=== PATIENT | female | born 1995 | race Caucasian/White ===

== ENCOUNTER → 2017-03-10 | Outpatient (CLI) | payer BC ==
[~2017-03-10] MED LIST: BUSP1TAB46 PO; NORE1TAB7 PO; RIVA1TAB7 PO; TRAM-10 PO
--- NOTE | 2017-03-10 14:45 | MAMMOGRAPHY REPORT ---
ULTRASOUND OF BOTH BREASTS: 03/10/2017 CLINICAL HISTORY: 21-year-old woman reports a heavy feeling along the inferior right breast that is positional and fluctuating. She also reports her provider felt a ridge in the inferior right breast on recent physical exam. No skin erythema or nipple discharge. No family history of breast cancer . COMPARISON: No prior exams were available for comparison. FINDINGS: Real-time high-resolution ultrasound was performed along the inferior and lateral right b reast in the area of abnormal sensation pointed out by the patient. Incidental note is made of a mo rphologically normal lymph node in the 9:00 right breast, 6 cm from the nipple. Throughout the esther nirmala of the inferior and lateral right breast, normal fibroglandular tissue is seen without a suspi cious solid or cystic mass. IMPRESSION: ACR BI-RADS CATEGORY 1: NEGATIVE There is no sonographic evidence of malignancy or other suspicious abnormality to explain the interm ittent positional abnormal sensation along the inferior right breast, or the ridge identified by the patient's provider. Therefore, clinical follow-up is recommended, as biopsy of a clinically suspic ious mass should not be precluded by negative imaging. These results and recommendations were discussed with the patient at the time of the exam. Valeria Cho M.D. ay/:03/10/2017 14:32:51 [employer] Teacher: Savanna DECKER)(Hieu), [facility] letter sent: Normal 1/2 BI-RADS Code: ACR BI-RADS Category 1: Negative
== END | disposition home or self-care (01) ==
LOC: C.MAMM 13:46
PROVIDERS: ATTEND Physician Assistant
DX: N64.4 Mastodynia (principal); N64.59 Other signs and symptoms in breast

== ENCOUNTER → 2017-08-05 | Outpatient (CLI) | payer BC ==
[~2017-08-05] MED LIST changes: -RIVA1TAB7 PO; -TRAM-10 PO
--- NOTE | 2017-08-05 11:36 | DIAGNOSTIC IMAGING REPORT ---
R VENOUS DOPP LOWER EXT UNILAT CLINICAL HISTORY: 22 years-old Female presenting with PAIN. TECHNIQUE: Real-time grayscale and color and spectral Doppler ultrasound imaging of the veins of the right lower extremity was performed. Compression and augmentation were also utilized. COMPARISON: None. FINDINGS: Right: Common femoral vein: Patent. Femoral vein: Patent. Greater saphenous vein: Patent. Popliteal vein: Patent. Calf veins: Filling defect within the right peroneal vein consistent with thrombus. Remaining calf veins patent. Other: None. IMPRESSION: Findings consistent with deep venous thrombosis in the right peroneal vein. No additional DVT in the more superior veins. The report will be called/faxed according to standard departmental protocol. Electronically signed by: Anton Marshall M.D. 08/05/2017 11:34 AM Dictated Date/Time: 08/05/2017 11:33 AM
== END | disposition home or self-care (01) ==
LOC: C.ULTR 10:39
PROVIDERS: ATTEND Physician Assistant Medical
DX: M79.604 Pain in right leg (principal)

== ENCOUNTER 2017-08-10 14:43 | Emergency (ER) | payer BC ==
[~2017-08-10] VITALS: Ht 177.8 cm; Wt 117.0 kg
[2017-08-10 14:55] VITALS: TEMP 36.8; Ht 177.8 cm; Wt 117.0 kg
[2017-08-10] MEDS ORDERED: SODIUM CHLORIDE 0.9% 1000ML 1,000 ML IV STA (15:17)
--- NOTE | 2017-08-10 15:29 | EMERGENCY ROOM VISIT NOTE ---
History First contact with patient: 15:10 Chief Complaint: CHEST PAIN Stated Complaint: BLOOD CLOT IN R LEG, CHEST ALEX Nursing Triage Summary: Patient ambulatory to triage with the use of a cane. Patient states "I was diagnosed with a DVT in my RLE on Friday. I was started on Xarelto on Friday. They told me to watch out for chest pains. Last night, I noticed having severe heartburn in the right side of my chest, under my breast. I took something for pain but I don't know what it's called. I woke up lightheaded and with a headache today. I took some Tylenol but no additional pain meds. Today, three times, I have had stabbing and sharp pain in the center of my chest three times. I have been lightheaded and dizzy occassionally." History of Present Illness The patient is a 22 year old female who presents to the Emergency Room with complaints of lightheadedness and intermittent right-sided chest pain that started last night. Patient states that the chest pain felt like heartburn that radiated to the right side of her chest and under her right breast. She has also had some intermittent periods of lightheadedness associated with sharp pains in her chest since this morning. She denies any shortness of breath or increased work of breathing. She reports that she was diagnosed with a right lower extremity DVT 5 days ago, she was started on Xarelto which she has been taking as prescribed. She states that they told her if she got chest pain that she should come to the ER, this is what she is most concerned about. She denies any of these symptoms currently. She does report a history of GERD, and states she is not currently taking any medication for this but she was supposed to be taking omeprazole. She denies any headaches, vision changes, neck pain, syncope , abdominal pain, nausea or vomiting, urinary symptoms, rash. Review of Systems A complete 10 point review of systems was reviewed with the patient with pertinent positives and negatives as per history of present illness. All else were negative. Past Medical/Surgical History DVT Social History Smoking Status: Never Smoker Alcohol Use: none Drug Use: none Current/Historical Medications Scheduled Rivaroxaban (Xarelto Starter Pack 15 & 20 mg), 15 MG PO BID Scheduled PRN Tramadol (Ultram), 50 MG PO Q6 PRN for Pain Allergies No known allergies. Physical Exam Vital Signs Date Time Temp Pulse Resp B/P (MAP) Pulse Ox O2 Delivery O2 Flow Rate FiO2 08/10/17 17:44 72 16 114/76 98 08/10/17 16:35 74 18 99/68 100 Room Air 08/10/17 16:04 100 Room Air 08/10/17 16:04 100 Room Air 08/10/17 14:55 97 Room Air 08/10/17 14:55 36.8 80 20 142/95 98 Room Air Physical Exam CONSTITUTIONAL: No acute distress. Mildly dehydrated. Well appearing and well nourished. Alert and oriented X 4 with normal affect. HEENT: Normocephalic, atraumatic. Pupils equal, round and reactive to light, EOMI. TMs normal. Pharynx normal. Tacky mucous membranes. NECK: Supple, full active range of motion without discomfort. RESPIRATORY: Clear to auscultation bilaterally with no wheezing, crackles, rhonchi or stridor. Equal expansion bilaterally. CARDIOVASCULAR: Regular rate and rhythm with no murmurs, rubs or gallops. Normal peripheral perfusion. No edema. GASTROINTESTINAL: Soft, nontender, nondistended. Bowel sounds present in all quadrants. MUSCULOSKELETAL: Full range of motion of all joints without discomfort. Right lower extremity mildly tender to palpation. INTEGUMENTARY: No rash or other significant dermatologic conditions noted. NEUROLOGIC: Cranial nerves II-XII grossly intact. No focal neurologic deficits noted. Medical Decision & Procedures ER Provider Diagnostic Interpretation: CT ANGIOGRAPHY OF THE CHEST, PULMONARY EMBOLUS PROTOCOL CLINICAL HISTORY: Chest pain and shortness of breath. COMPARISON STUDY: No previous studies for comparison. TECHNIQUE: Following IV administration of 93 mL of Optiray-320, helical axial images of the chest were obtained utilizing the pulmonary embolus protocol. Maximal intensity projections and sagittal and coronal reformats were viewed on an independent 3D workstation. IV contrast was administered without complication. A dose lowering technique was utilized adhering to the principles of ALARA. CT DOSE: 527.84 mGy.cm FINDINGS: No pulmonary emboli are identified. There is no evidence of thoracic aortic dissection. The size of the heart is normal. There is no pericardial effusion. Central airways are patent. There is no consolidation to suggest pneumonia. No pneumothorax or pleural effusion is present. No axillary, mediastinal or hilar lymphadenopathy is present. Bony thorax and upper abdomen are unremarkable. IMPRESSION: 1. No pulmonary emboli identified. 2. No acute intrathoracic findings. Laboratory Results 08/10/17 15:10 Red Blood Count 5.21, Mean Corpuscular Volume 84.3, Mean Corpuscular Hemoglobin 28.2, Mean Corpuscular Hemoglobin Concent 33.5, Mean Platelet Volume 9.8, Neutrophils (%) (Auto) 54.4, Lymphocytes (%) (Auto) 35.1, Monocytes (%) (Auto) 8.6, Eosinophils (%) (Auto) 1.1, Basophils (%) (Auto) 0.6, Neutrophils # (Auto) 4.48, Lymphocytes # (Auto) 2.89, Monocytes # (Auto) 0.71, Eosinophils # (Auto) 0.09, Basophils # (Auto) 0.05 08/10/17 15:10 Test 08/10/17 15:10 08/10/17 15:37 08/10/17 16:01 White Blood Count 8.24 K/uL (4.8-10.8) Red Blood Count 5.21 M/uL (4.2-5.4) Hemoglobin 14.7 g/dL (12.0-16.0) Hematocrit 43.9 % (37-47) Mean Corpuscular Volume 84.3 fL (80-100) Mean Corpuscular Hemoglobin 28.2 pg (25-34) Mean Corpuscular Hemoglobin Concent 33.5 g/dl (32-36) Platelet Count 363 K/uL (130-400) Mean Platelet Volume 9.8 fL (7.4-10.4) Neutrophils (%) (Auto) 54.4 % Lymphocytes (%) (Auto) 35.1 % Monocytes (%) (Auto) 8.6 % Eosinophils (%) (Auto) 1.1 % Basophils (%) (Auto) 0.6 % Neutrophils # (Auto) 4.48 K/uL (1.4-6.5) Lymphocytes # (Auto) 2.89 K/uL (1.2-3.4) Monocytes # (Auto) 0.71 K/uL (0.11-0.59) Eosinophils # (Auto) 0.09 K/uL (0-0.5) Basophils # (Auto) 0.05 K/uL (0-0.2) RDW Standard Deviation 39.0 fL (36.4-46.3) RDW Coefficient of Variation 12.8 % (11.5-14.5) Immature Granulocyte % (Auto) 0.2 % Immature Granulocyte # (Auto) 0.02 K/uL (0.00-0.02) Est Creatinine Clear Calc Drug Dose 148.6 ml/min Estimated GFR () 117.8 Estimated GFR (Non- 101.7 BUN/Creatinine Ratio 16.8 (10-20) Calcium Level 9.1 mg/dl (8.5-10.1) Total Bilirubin 0.4 mg/dl (0.2-1) Aspartate Amino Transf (AST/SGOT) 15 U/L (15-37) Alanine Aminotransferase (ALT/SGPT) 17 U/L (12-78) Alkaline Phosphatase 78 U/L (45-117) Total Protein 8.4 gm/dl (6.4-8.2) Albumin 3.6 gm/dl (3.4-5.0) Globulin 4.8 gm/dl (2.5-4.0) Albumin/Globulin Ratio 0.8 (0.9-2) Bedside Hemoglobin 14.6 g/dl (12.0-16.0) Bedside Hematocrit 43 % (37-47) Bedside Sodium 139 mEq/L (135-144) Bedside Potassium 3.4 mEq/L (3.3-5.0) Bedside Chloride 100 mEq/L (101-112) Bedside Total CO2 26 mEq/l (24-31) Anion Gap 18.0 mmol/L (16-25) Bedside Blood Urea Nitrogen 15 mg/dl (7-18) Bedside Creatinine 0.8 mg/dl (0.6-1.3) Bedside Glucose (other) 96 mg/dl (70-99) Bedside Ionized Calcium (Monalisa) 1.21 mmol/l (1.12-1.32) Urine Color ORANGE Urine Appearance CLEAR (CLEAR) Urine pH 5.5 (4.5-7.5) Urine Specific [place] 1.016 (1.000-1.030) Urine Protein NEG (NEG) Urine Glucose (UA) NEG (NEG) Urine Ketones NEG (NEG) Urine Occult Blood 3+ (NEG) Urine Nitrite NEG (NEG) Urine Bilirubin NEG (NEG) Urine Urobilinogen NEG (NEG) Urine Leukocyte Esterase SMALL (NEG) Urine WBC (Auto) 5-10 /hpf (0-5) Urine RBC (Auto) >30 /hpf (0-4) Urine Hyaline Casts (Auto) 1-5 /lpf (0-5) Urine Epithelial Cells (Auto) >30 /lpf (0-5) Urine Bacteria (Auto) NEG (NEG) Medications Administered Medications (Trade) Dose Ordered Sig/Amanda Route Start Time Stop Time Status Last Admin Dose Admin Sodium Chloride 1,000 ml @ 999 mls/hr Q1H1M STAT IV 08/10/17 15:17 08/10/17 16:17 DC 08/10/17 15:17 999 MLS/HR ECG Indication: chest pain Rate (beats per minute): 79 Rhythm: normal sinus Findings: no acute ischemic change, no ectopy Comparison ECG Date: no prior available Medical Decision CC: Patient presenting with complaint of lightheadedness and chest pain Interpretation of Labs: No leukocytosis, no anemia, no significant abnormalities , normal renal function, normal liver enzymes. UA with leuk esterase and hematuria, patient states she is on her period. Differential Diagnosis: Includes, but not limited to PE, dysrhythmia, dehydration, electrolyte abnormality, anemia, musculoskeletal chest pain, anxiety, GERD, gastritis, among others. Medication Reconciliation: I attest that I have personally reviewed the patient' s current medication list. Vital signs review: I reviewed the patient's vital signs and interpret them as follows: T: Afebrile; BP: Hypertensive; HR: Within normal limits; RR: Within normal limits; Pulse Ox: Within normal limits on room air. Summary: Patient was evaluated at bedside, history of physical exam performed. Patient alert and in no acute distress, but does appear to be anxious, sitting in the stretcher. Lungs are clear, no exam findings for increased work of breathing. Heart sounds are normal, she is not tachycardic. Given her recent diagnosis of DVT complaints of chest pain and dizziness, will assess for PE. Patient does appear to be mildly dehydrated, she does admit she is not been drinking well lately. EKG reviewed at bedside, shows normal sinus with no acute ischemic changes. Orders were placed at bedside for labs, UA, IV fluids for hydration, CT chest to evaluate for PE. Patient discussed with Dr. Cornejo, who agrees with my assessment and plan. Labs reviewed as above, unremarkable. No UTI. CT imaging is negative for PE or any other acute abnormalities. Patient reassessed multiple times throughout ED stay, she continues to feel well and has not had any return of her symptoms while in the ED. She was updated on all results and plan for discharge. She was instructed to follow closely with her PCP, and to return if her symptoms worsen, she verbalized understanding. Patient was discharged home in stable condition and ambulatory. Medication Reconcilliation Current Medication List: was personally reviewed by me Blood Pressure Screening Patient's blood pressure: Elevated blood pressure Blood pressure disposition: Elevated BP felt to be situational Impression Primary Impression: Light-headed feeling Additional Impression: Chest pain Departure Information Dispostion Home / Self-Care Condition GOOD Referrals Eligio Lancaster M.D. (PCP) Patient Instructions ED Dizziness [facility], ED GERD, [facility], [facility] Additional Instructions You have been treated in the Emergency Department your lightheadedness and chest pain. Laboratory results and imaging studies have ruled out any emergent causes for your abdominal pain which would warrant admission or surgery. Specifically, your CT scan was negative for a pulmonary embolism (blood clot in the lungs). If your chest pain/indigestion symptoms return, try treating this with over-the- counter medicine for indigestion such as Tums, Maalox, Zantac or Pepcid. Drink plenty of fluids and stay well hydrated. As with any trip to the Emergency Department, you should follow-up with your Primary Care Provider in the next few days. Please return to the emergency department for any worsening symptoms, including worsening chest pain, severe dizziness or passing out, shortness of breath, fever/chills/feeling ill, or any other concerns. Problem Qualifiers Additional Impression: Chest pain Chest pain type: unspecified Qualified Codes: R07.9 - Chest pain, unspecified
[2017-08-10] MEDS ORDERED: OPTIRAY 320 IV PRN (15:30)
[2017-08-10 15:47] LABS: BUN/CREATININE RATIO 16.8 (10-20); CALCIUM 9.1 mg/dl (8.5-10.1); CREATININE 0.81 mg/dl (0.60-1.20); POTASSIUM 3.4 mmol/L (3.5-5.1)
[2017-08-10 15:47] LABS: ISTAT CREATININE 0.8 mg/dl (0.6-1.3); ISTAT HEMOGLOBIN 14.6 g/dl (12.0-16.0); ISTAT IONIZED CALCIUM 1.21 mmol/l (1.12-1.32)
[2017-08-10 15:51] LABS: ALB/GLOB RATIO 0.8 (0.9-2)
[2017-08-10 16:04] VITALS: O2SAT 100
--- NOTE | 2017-08-10 16:04 | DIAGNOSTIC IMAGING REPORT ---
CT ANGIOGRAPHY OF THE CHEST, PULMONARY EMBOLUS PROTOCOL CLINICAL HISTORY: Chest pain and shortness of breath. COMPARISON STUDY: No previous studies for comparison. TECHNIQUE: Following IV administration of 93 mL of Optiray-320, helical axial images of the chest were obtained utilizing the pulmonary embolus protocol. Maximal intensity projections and sagittal and coronal reformats were viewed on an independent 3D workstation. IV contrast was administered without complication. A dose lowering technique was utilized adhering to the principles of ALARA. CT DOSE: 527.84 mGy.cm FINDINGS: No pulmonary emboli are identified. There is no evidence of thoracic aortic dissection. The size of the heart is normal. There is no pericardial effusion. Central airways are patent. There is no consolidation to suggest pneumonia. No pneumothorax or pleural effusion is present. No axillary, mediastinal or hilar lymphadenopathy is present. Bony thorax and upper abdomen are unremarkable. IMPRESSION: 1. No pulmonary emboli identified. 2. No acute intrathoracic findings. Electronically signed by: Mu Coats M.D. 08/10/2017 4:02 PM Dictated Date/Time: 08/10/2017 3:56 PM
[2017-08-10 16:16] LABS: MANUAL MICROSCOPIC REQUIRED? NO; REVIEW REQ? NO; URINE APPEARANCE CLEAR (CLEAR); URINE BILIRUBIN NEG (NEG); URINE COLOR ORANGE; URINE EPITHELIAL CELL AUTO >30 /lpf (0-5); URINE NITRITE NEG (NEG); URINE PH 5.5 (4.5-7.5); URINE SPECIFIC GRAVITY 1.016 (1.000-1.030); UROBILINOGEN NEG (NEG)
[2017-08-10 16:26] LABS: BASO % 0.6 %; BASO ABS # 0.05 K/uL (0-0.2); COMPLETE YES; EOS % 1.1 %; HEMATOCRIT 43.9 % (37-47); IG% 0.2 %; LYMPH % 35.1 %; LYMPH ABS # 2.89 K/uL (1.2-3.4); MEAN CELL VOLUME 84.3 fL (80-100); MEAN CORPUSCULAR HEMOGLOBIN 28.2 pg (25-34); MEAN CORPUSCULAR HGB CONC 33.5 g/dl (32-36); MEAN PLATELET VOLUME 9.8 fL (7.4-10.4); MONO % 8.6 %; NEUT % 54.4 %; PLATELET COUNT 363 K/uL (130-400); RED BLOOD COUNT 5.21 M/uL (4.2-5.4); WHITE BLOOD COUNT 8.24 K/uL (4.8-10.8)
[2017-08-10] MEDS ORDERED: RIVA1TAB7 PO (16:40)
[2017-08-10] MEDS ORDERED: TRAM-10 PO (16:40)
[2017-08-10 17:44] VITALS: BP 114/76; PULSE 72; O2SAT 98
== END 2017-08-10 17:45 | disposition home or self-care (01) ==
LOC: C.EDB 14:44 → C.EDC 17:45
DX: R07.9 Chest pain, unspecified (principal); R42 Dizziness and giddiness; K21.9 Gastro-esophageal reflux disease without esophagitis; Z86.718 Personal history of other venous thrombosis and embolism; Z79.899 Other long term (current) drug therapy

== ENCOUNTER → 2017-08-15 | Outpatient (CLI) | payer BC ==
[~2017-08-15] MED LIST changes: -BUSP1TAB46 PO; -NORE1TAB7 PO; +RIVA1TAB7 PO; +TRAM-10 PO
[2017-08-15 16:39] LABS: URINE APPEARANCE CLEAR (CLEAR); URINE BILIRUBIN NEG (NEG); URINE COLOR YELLOW; URINE EPITHELIAL CELL AUTO 20-30 /lpf (0-5); URINE NITRITE NEG (NEG); URINE SPECIFIC GRAVITY 1.011 (1.000-1.030); UROBILINOGEN NEG (NEG)
[2017-08-15 16:42] LABS: BLOOD UREA NITROGEN 12 mg/dl (7-18); BUN/CREATININE RATIO 18.9 (10-20); CALCIUM 9.2 mg/dl (8.5-10.1); CARBON DIOXIDE 28 mmol/L (21-32); CHLORIDE 104 mmol/L (98-107); CREATININE 0.66 mg/dl (0.60-1.20); GLUCOSE 87 mg/dl (70-99); SODIUM 137 mmol/L (136-145)
[2017-08-15 16:56] LABS: MANUAL MICROSCOPIC REQUIRED? NO; REVIEW REQ? NO
== END | disposition home or self-care (01) ==
LOC: C.LABBFT 12:07
PROVIDERS: ATTEND Physician Assistant Medical
DX: E87.6 Hypokalemia (principal)

== ENCOUNTER 2020-09-28 17:42 | Observation (INO) ==
[2020-09-28 19:00] LABS: Alanine Aminotransferase 71 U/L (12-78); Albumin Level 3.3 gm/dl (3.4-5.0); Aspartate Aminotransferase 91 U/L (15-37); BUN Creatinine Ratio 8.4 (10-20); Bilirubin Direct 0.3 mg/dl (0-0.2); Blood Urea Nitrogen 14 mg/dl (7-18); Calcium 9.7 mg/dl (8.5-10.1); Carbon Dioxide 22 mmol/L (21-32); Chloride 105 mmol/L (98-107); Est GFR (African American) 50.7; Est GFR (Non-African American) 43.7; Glucose 95 mg/dl (70-99); Magnesium 1.9 mg/dl (1.8-2.4); Potassium 3.3 mmol/L (3.5-5.1); Sodium 140 mmol/L (136-145)
[2020-09-28 19:03] LABS: Alkaline Phosphatase 179 U/L (45-117); Phosphorus 3.5 mg/dl (2.5-4.9); Total Protein 6.9 gm/dl (6.4-8.2)
--- NOTE | 2020-09-28 19:20 | XRay Report ---
XR chest 1V portable CLINICAL HISTORY: admission - leukocytosis COMPARISON STUDY: 09/24/2020 FINDINGS: The heart is borderline enlarged. There is a subpulmonic right pleural effusion with associ ated right basilar airspace opacities. The left lung remains clear.[ IMPRESSION: 1. Elevation of the right hemidiaphragmatic contour with lateral shouldering of the right hemidiaphra gmatic shadow. The findings are suggestive of a subpulmonic right pleural effusion. There are associa beth right basilar airspace opacities ACT 112: Negative or not required by law. Electronically signed by: Alo Lopes M.D. 09/28/2020 7:18 PM
[2020-09-28 19:39] LABS: Hematocrit (blood only) 32.4 % (37-47); Hemoglobin 11.2 g/dL (12.0-16.0); Mean Corpuscular Hemoglobin 26.7 pg (25-34); Mean Corpuscular Hgb Conc 34.6 g/dL (32-36); Mean Corpuscular Volume 77.1 fL (80-100); RDW Coefficient of Variation 14.7 % (11.5-14.5); RDW Standard Deviation 41.6 fL (36.4-46.3); White Blood Count 15.24 K/uL (4.8-10.8)
[2020-09-28 19:40] LABS: Mean Platelet Volume 10.3 fL (7.4-10.4); Nucleated RBC # (auto) 0.72 K/uL (0-0); Nucleated RBC % (auto) 4.7 %; Platelet Count 19 K/uL (130-400)
[2020-09-28 19:41] LABS: ALC (manual) 9.36 K/uL (1.2-3.4); Basophils # (manual) 0.14 K/uL (0-0.2); Basophils % (manual) 0.9 %; Eosinophils # (manual) 0.66 K/uL (0-0.5); Eosinophils % (manual) 4.3 %; Lymphocytes # (manual) 6.49 K/uL (1.2-3.4); Lymphocytes % (manual) 42.6 %; Metamyelocytes # (manual) 0.52 K/uL (0-0); Metamyelocytes % (manual) 3.4 %; Monocytes # (manual) 1.17 K/uL (0.11-0.59); Monocytes % (manual) 7.7 %; Myelocytes % (manual) 2.6 %; Neutrophils % (manual) 19.7 %; Platelet Estimate Decreased (Normal); RBC Morphology Unremarkable; Reactive Lymphocytes # (manual) 2.87 K/uL; Reactive Lymphocytes % (manual) 18.8 %
--- NOTE | 2020-09-28 19:59 | History & Physical Report ---
Date of Service September 28, 2020 Assessment & Plan (1) Shortness of breath: Selene Muhammad is a 25yo C female presenting with multiple complaints - SOB, sweats, night sweats. Laboratory findings concerning for thrombocytopenia (plt=19), microcytic anemia (Hgb=11.2, Hct=32.4, MCV=77.1), leukocytosis with lymphocytosis. Concerning for acute malignancy -Check Uric Acid, LDH, Peripheral smear -Ferritin, iron studies -FSH ordered -Heme/Onc consultation appreciated Present on Admission?: Yes (2) Axillary lymphadenopathy: Concern for acute malignancy -See plan as above -Patient will most likely need FNA Present on Admission?: Yes (3) Edema of lower extremity: Patient reports progressive bilateral LE edema over the last few days. 2+ non-pitting on exam -Check BNP -Elevate legs -Check UA, TSH Present on Admission?: Yes (4) Transaminitis: Elevated AST, AP. Diffuse abdominal tenderness. Organomegaly difficult to appreciate secondary to body habitus -Check CT Abdomen -Repeat LFTs in AM Present on Admission?: Yes (5) Thrombocytopenia: Platelets = 19. Patient reports nosebleeds at home. No spontaneous bleeding at present -Peripheral smear -Check Fibrinogen, Coags for possible DIC Present on Admission?: Yes (6) Lymphocytosis: As above. Concern for acute malignancy -Peripheral smear -Hematology consultation appreciated Present on Admission?: Yes (7) Gastritis: Chronic. Fairly well controlled. -Hold Pepcid for now due to thrombocytopenia Present on Admission?: Yes History of Present Illness Chief Complaint: jaw pain Primary Care Provider: Eligio Lancaster MD Selene Muhammad is a 25yo C female with history of DVT presenting at the request of her outpatient physician for workup of jaw pain, thrombocytopenia and leukocytosis. Patient seen in the ER on 09/06/20 with complaint of cough/congestion/fevers/body aches. WBC=11.8 platelets WNL at that time. CTA of the chest was done which was negative for PE. A nonspecific axillary LN was detected at that time - 4.5 cm. Patient was diagnosed with viral bronchitis, given Dexamethasone x 1 dose and discharged home with MDI. Patient returned to the ER on 09/17/20 with complaint of fever, SERVIN, CP, body aches, nausea. Also with severe SERVIN and nosebleeds. Patient's platelet count found to be 95 at that time - also with elevated lymphocytes and D.dimer as well as abnormal liver studies. Lyme and anaplasmosis negative. Patient had an unremarkable CT of the head and sinuses as well as a normal MRI/MRV of the brain. She returns to the ER today with complaint of ongoing body pains, JULIO/SOB, occ asional nosebleeds, chest tightness. She states she has drenching night sweats every night for the last 3.5 weeks. Some minimal unintentional weight loss. New bilateral LE edema with pain in her feet as well as severe pain in her jaw. Allergies Allergy/AdvReac Type Severity Reaction Status Date / Time No Known Allergies Allergy Verified 09/28/20 19:18 Home Medications Medication Instructions Recorded Confirmed Type acetaminophen [Acetaminophen Extra 1,000 mg PO Q6H PRN 09/06/20 09/28/20 History Strength] loratadine 10 mg PO DAILY PRN 09/06/20 09/28/20 History famotidine 20 mg PO BID #20 tab 09/17/20 09/28/20 Rx hydroxyzine HCl 25 mg PO Q6H PRN 09/28/20 09/28/20 History ondansetron 4 mg PO Q6H PRN 09/28/20 09/28/20 History promethazine 25 mg PO Q6H PRN 09/28/20 09/28/20 History Past Med/Surg History Medical History DVT (deep venous thrombosis) Angela Polanco virus infection Surgical History History of cholecystectomy History of tonsillectomy Family History Brother Asthma Grandmother (Paternal) Breast cancer Grandmother (Maternal) Diabetes Hypertension Grandfather (Maternal) Diverticulitis Mother Uterus cancer Grandfather (Paternal) Hypertension Denies family history of Ovarian cancer Prostate cancer Myocardial infarction Colorectal cancer Social History Smoking Status: Never smoker Second Hand Exposure: No; Do You Dip or Chew Tobacco: No; Hx Alcohol Use: No Hx Substance Use: No Preferred Language: Indonesian Communication Ability: Effective Visual Impairment: No Limitations Hearing Ability: Normal Band Bias Machine Operator Required: No Beliefs That Will Affect Care: None Current Living Situation: Family current occupational status: employed Other Information That Helps Us Care for You: No Feels Safe at Home: Yes Safety Concerns: Feels Safe At This Time Sunscreen Use: Yes Assistive Devices: None Review of Systems Review of Systems: All systems reviewed & are unremarkable except as noted in HPI & below +Sweats +Weight loss +SERVIN - dull, frontal +Ear pain - right +Sore throat +Chest tightness +SOB/JULIO +Abdominal pain +Diarrhea - q hourly, no blood/mucus +Nosebleeds +edema Physical Exam Physical Exam: General: patient anxious in appearance, NAD, ill in appearance, AA&O x 4 Skin: warm, dry, intact, no rashes or lesions HEENT: NC/AT, PERRL, EOMI, anicteric sclera, conjunctiva without injection, external ear normal to inspection and nontender, +cerumen present bilaterally, no otitis externa, nares patent, moist mucus membranes, dentition intact, no oropharyngeal lesions, neck supple, trachea midline, no LAD, no thyromegaly, no JVD Heart: +S1/S2, regular, tachycardic, no m/r/g Lungs: equal air entry bilaterally, no rales/rhonchi/wheezes Abd: +BS, soft, non-distended, tender to palpation diffusely without rebound/guarding/peritonitis, no masses/organomegaly/ascites - exam limited secondary to body habitus Ext: warm, 2+ pulses in UE/LE bilaterally, no clubbing/cyanosis, 2+ non-pitting edema, +firm left axillary lymph node, no cervical/clavicular/femoral nodes appreciated - exam limited Neuro: nonfocal, patient AA&O x 4, speech intact, no facial droop, moving all extremities on command with equal strength 5/5 Results & Data Results & Data ([facility]) Vital Signs (Past 12 Hours) Vital Signs Temp Pulse Pulse Resp BP BP Pulse Ox 09/28/20 19:14 111 H 22 184/84 H 96 09/28/20 18:13 36.5 C 120 H 20 172/97 H 95 Laboratory Results Lab Results 09/28/20 09/28/20 09/28/20 Range/Units 18:34 18:34 18:34 WBC 15.24 H (4.8-10.8) K/uL RBC 4.20 (4.2-5.4) M/uL Hgb 11.2 L (12.0-16.0) g/dL Hct 32.4 L (37-47) % MCV 77.1 L (80-100) fL MCH 26.7 (25-34) pg MCHC 34.6 (32-36) g/dL RDW Std Deviation 41.6 (36.4-46.3) fL RDW Coeff of Shila 14.7 H (11.5-14.5) % Plt Count 19 L* (130-400) K/uL MPV 10.3 (7.4-10.4) fL Absolute Nucleated RBC 0.72 H (0-0) K/uL Nucleated RBC % (auto) 4.7 % Neutrophils % (Manual) 19.7 % Lymphocytes % (Manual) 42.6 % Reactive Lymphs % (Man) 18.8 % Monocytes % (Manual) 7.7 % Eosinophils % (Manual) 4.3 % Basophils % (Manual) 0.9 % Metamyelocytes % (Man) 3.4 % Myelocytes % (Man) 2.6 % Neutrophils # (Manual) 3.00 (1.4-6.5) K/uL Total Absolute Neuts 3.00 (1.4-6.5) K/uL Lymphocytes # (Manual) 6.49 H (1.2-3.4) K/uL Reactive Lymphs # 2.87 K/uL Total Abs Lymphocytes 9.36 H (1.2-3.4) K/uL Monocytes # (Manual) 1.17 H (0.11-0.59) K/uL Eosinophils # (Manual) 0.66 H (0-0.5) K/uL Basophils # (Manual) 0.14 (0-0.2) K/uL Metamyelocytes # (Man) 0.52 H (0-0) K/uL Myelocytes # (Manual) 0.40 H (0-0) K/uL Platelet Estimate Decreased L (Normal) RBC Morphology Unremarkable Sodium 140 (136-145) mmol/L Potassium 3.3 L (3.5-5.1) mmol/L Chloride 105 (98-107) mmol/L Carbon Dioxide 22 (21-32) mmol/L Anion Gap 12.0 H (3-11) BUN 14 (7-18) mg/dl Creatinine 1.60 H (0.6-1.2) mg/dl Est Cr Clr Drug Dosing Not Reportable Est GFR ( Amer) 50.7 Est GFR (Non-Af Amer) 43.7 BUN/Creatinine Ratio 8.4 L (10-20) Glucose 95 (70-99) mg/dl Uric Acid 17.3 H (2.6-7.2) mg/dl Calcium 9.7 (8.5-10.1) mg/dl Phosphorus 3.5 (2.5-4.9) mg/dl Magnesium 1.9 (1.8-2.4) mg/dl Iron 123 (35-150) mcg/dl TIBC 289 (250-450) mcg/dl Ferritin 1227.5 H (8-388) ng/ml Total Bilirubin 1.0 (0.2-1) mg/dl Direct Bilirubin 0.3 H (0-0.2) mg/dl AST 91 H (15-37) U/L ALT 71 (12-78) U/L Alkaline Phosphatase 179 H (45-117) U/L Lactate Dehydrogenase (84-246) U/L NT-Pro-B Natriuret Pep 312 (0-450) pg/ml Total Protein 6.9 (6.4-8.2) gm/dl Albumin 3.3 L (3.4-5.0) gm/dl Procalcitonin (0-0.5) ng/ml Urine Color Urine Appearance (Clear) Urine pH (4.5-7.5) Ur Specific [place] (1.000-1.030) Urine Protein (Negative) Urine Glucose (UA) (Negative) Urine Ketones (Negative) Urine Blood (Negative) Urine Nitrite (Negative) Urine Bilirubin (Negative) Urine Urobilinogen (Negative) Ur Leukocyte Esterase (Negative) Urine WBC (Auto) (0-5) /hpf Urine RBC (Auto) (0-4) /hpf U Hyaline Cast (Auto) (0-5) /lpf U Epithel Cells (Auto) (0-5) /lpf Urine Bacteria (Auto) (Negative) SARS-CoV-2 Ag (Rapid) (Negative) 09/28/20 09/28/2009/28/20 Range/Units 18:34 18:34 19:18 WBC (4.8-10.8) K/uL RBC (4.2-5.4) M/uL Hgb (12.0-16.0) g/dL Hct (37-47) % MCV (80-100) fL MCH (25-34) pg MCHC (32-36) g/dL RDW Std Deviation (36.4-46.3) fL RDW Coeff of Shila (11.5-14.5) % Plt Count (130-400) K/uL MPV (7.4-10.4) fL Absolute Nucleated RBC (0-0) K/uL Nucleated RBC % (auto) % Neutrophils % (Manual) % Lymphocytes % (Manual) % Reactive Lymphs % (Man) % Monocytes % (Manual) % Eosinophils % (Manual) % Basophils % (Manual) % Metamyelocytes % (Man) % Myelocytes % (Man) % Neutrophils # (Manual) (1.4-6.5) K/uL Total Absolute Neuts (1.4-6.5) K/uL Lymphocytes # (Manual) (1.2-3.4) K/uL Reactive Lymphs # K/uL Total Abs Lymphocytes (1.2-3.4) K/uL Monocytes # (Manual) (0.11-0.59) K/uL Eosinophils # (Manual) (0-0.5) K/uL Basophils # (Manual) (0-0.2) K/uL Metamyelocytes # (Man) (0-0) K/uL Myelocytes # (Manual) (0-0) K/uL Platelet Estimate (Normal) RBC Morphology Sodium (136-145) mmol/L Potassium (3.5-5.1) mmol/L Chloride (98-107) mmol/L Carbon Dioxide (21-32) mmol/L Anion Gap (3-11) BUN (7-18) mg/dl Creatinine (0.6-1.2) mg/dl Est Cr Clr Drug Dosing Est GFR ( Amer) Est GFR (Non-Af Amer) BUN/Creatinine Ratio (10-20) Glucose (70-99) mg/dl Uric Acid (2.6-7.2) mg/dl Calcium (8.5-10.1) mg/dl Phosphorus (2.5-4.9) mg/dl Magnesium (1.8-2.4) mg/dl Iron (35-150) mcg/dl TIBC (250-450) mcg/dl Ferritin (8-388) ng/ml Total Bilirubin (0.2-1) mg/dl Direct Bilirubin (0-0.2) mg/dl AST (15-37) U/L ALT (12-78) U/L Alkaline Phosphatase (45-117) U/L Lactate Dehydrogenase 2043 H (84-246) U/L NT-Pro-B Natriuret Pep (0-450) pg/ml Total Protein (6.4-8.2) gm/dl Albumin (3.4-5.0) gm/dl Procalcitonin 1.18 H (0-0.5) ng/ml Urine Color Urine Appearance (Clear) Urine pH (4.5-7.5) Ur Specific [place] (1.000-1.030) Urine Protein (Negative) Urine Glucose (UA) (Negative) Urine Ketones (Negative) Urine Blood (Negative) Urine Nitrite (Negative) Urine Bilirubin (Negative) Urine Urobilinogen (Negative) Ur Leukocyte Esterase (Negative) Urine WBC (Auto) (0-5) /hpf Urine RBC (Auto) (0-4) /hpf U Hyaline Cast (Auto) (0-5) /lpf U Epithel Cells (Auto) (0-5) /lpf Urine Bacteria (Auto) (Negative) SARS-CoV-2 Ag (Rapid) Negative (Negative) 09/28/20 Range/Units 20:43 WBC (4.8-10.8) K/uL RBC (4.2-5.4) M/uL Hgb (12.0-16.0) g/dL Hct (37-47) % MCV (80-100) fL MCH (25-34) pg MCHC (32-36) g/dL RDW Std Deviation (36.4-46.3) fL RDW Coeff of Shila (11.5-14.5) % Plt Count (130-400) K/uL MPV (7.4-10.4) fL Absolute Nucleated RBC (0-0) K/uL Nucleated RBC % (auto) % Neutrophils % (Manual) % Lymphocytes % (Manual) % Reactive Lymphs % (Man) % Monocytes % (Manual) % Eosinophils % (Manual) % Basophils % (Manual) % Metamyelocytes % (Man) % Myelocytes % (Man) % Neutrophils # (Manual) (1.4-6.5) K/uL Total Absolute Neuts (1.4-6.5) K/uL Lymphocytes # (Manual) (1.2-3.4) K/uL Reactive Lymphs # K/uL Total Abs Lymphocytes (1.2-3.4) K/uL Monocytes # (Manual) (0.11-0.59) K/uL Eosinophils # (Manual) (0-0.5) K/uL Basophils # (Manual) (0-0.2) K/uL Metamyelocytes # (Man) (0-0) K/uL Myelocytes # (Manual) (0-0) K/uL Platelet Estimate (Normal) RBC Morphology Sodium (136-145) mmol/L Potassium (3.5-5.1) mmol/L Chloride (98-107) mmol/L Carbon Dioxide (21-32) mmol/L Anion Gap (3-11) BUN (7-18) mg/dl Creatinine (0.6-1.2) mg/dl Est Cr Clr Drug Dosing Est GFR ( Amer) Est GFR (Non-Af Amer) BUN/Creatinine Ratio (10-20) Glucose (70-99) mg/dl Uric Acid (2.6-7.2) mg/dl Calcium (8.5-10.1) mg/dl Phosphorus (2.5-4.9) mg/dl Magnesium (1.8-2.4) mg/dl Iron (35-150) mcg/dl TIBC (250-450) mcg/dl Ferritin (8-388) ng/ml Total Bilirubin (0.2-1) mg/dl Direct Bilirubin (0-0.2) mg/dl AST (15-37) U/L ALT (12-78) U/L Alkaline Phosphatase (45-117) U/L Lactate Dehydrogenase (84-246) U/L NT-Pro-B Natriuret Pep (0-450) pg/ml Total Protein (6.4-8.2) gm/dl Albumin (3.4-5.0) gm/dl Procalcitonin (0-0.5) ng/ml Urine Color Yellow Urine Appearance Cloudy A (Clear) Urine pH 5.0 (4.5-7.5) Ur Specific [place] 1.016 (1.000-1.030) Urine Protein 1+ H (Negative) Urine Glucose (UA) Negative (Negative) Urine Ketones Negative (Negative) Urine Blood Negative (Negative) Urine Nitrite Negative (Negative) Urine Bilirubin Negative (Negative) Urine Urobilinogen Negative (Negative) Ur Leukocyte Esterase Negative (Negative) Urine WBC (Auto) 1-5 (0-5) /hpf Urine RBC (Auto) 0-4 (0-4) /hpf U Hyaline Cast (Auto) 1-5 (0-5) /lpf U Epithel Cells (Auto) 10-20 H (0-5) /lpf Urine Bacteria (Auto) Negative (Negative) SARS-CoV-2 Ag (Rapid) (Negative) Diagnostic Findings XR chest 1V portable CLINICAL HISTORY: admission - leukocytosis COMPARISON STUDY: 09/24/2020 FINDINGS: The heart is borderline enlarged. There is a subpulmonic right pleural effusion with associated right basilar airspace opacities. The left lung remains clear.[ IMPRESSION: 1. Elevation of the right hemidiaphragmatic contour with lateral shouldering of the right hemidiaphragmatic shadow. The findings are suggestive of a subpulmonic right pleural effusion. There are associated right basilar airspace opacities ACT 112: Negative or not required by law. Electronically signed by: Alo Lopes M.D. 09/28/2020 7:18 PM Dictated: 09/28/201916Transcribed: 09/28/201916 ECG Additional Comments: ST at 106, no acute ischemic changes Code Status & VTE Plan VTE Prophylaxis Plan VTE Prophylaxis will be ordered: Yes PG Care Time/CCT Total # of Minutes Spent Total Time Spent with Patient: Total time spent is greater than 50% in coordination of care (as documented) at patient's floor/unit and/or counseling patient: Coding Level of Care Code 28458 Initial Inpt Care Lvl 3 Diagnoses Shortness of breath R06.02 Axillary lymphadenopathy R59.0 Edema of lower extremity R60.0 Transaminitis R74.01 Thrombocytopenia D69.6 Lymphocytosis D72.820 Gastritis K29.00 Chronicity: acute Gastritis bleeding: without bleeding Gastritis type: unspecified gastritis (1) Gastritis Chronicity: acute Gastritis bleeding: without bleeding Gastritis type: unspecified gastritis Qualified Code(s): K29.00 - Acute gastritis without bleeding
[2020-09-28] MEDS ORDERED: LACTATED RINGER'S 1,000 ML IV SCH (21:16)
[2020-09-28] MEDS ORDERED: ACETAMINOPHEN 325 MG TAB PO PRN (21:16)
[2020-09-28] MEDS ORDERED: ONDANSETRON INJ 2 MG/ML 2 ML VIAL IV PRN (21:16)
[2020-09-28] MEDS ORDERED: hydrOXYzine HCl 25 MG TAB PO PRN (21:16)
[2020-09-28 21:17] LABS: Appearance Urine Cloudy (Clear); Bacteria Urine Automated Negative (Negative); Bilirubin Urine Negative (Negative); Blood Urine Negative (Negative); Color Urine Yellow; Glucose Urine UA Negative (Negative); Ketones Urine Negative (Negative); Leukocyte Esterase Urine Negative (Negative); Nitrite Urine Negative (Negative); Protein Urine 1+ (Negative); RBC Urine Automated 0-4 /hpf (0-4); Specific Gravity Urine 1.016 (1.000-1.030); Urobilinogen Urine Negative (Negative)
[2020-09-28] MEDS ORDERED: POTASSIUM CHLORIDE CRTAB 20 MEQ TABCR PO ONE (22:00)
[2020-09-28 22:01] LABS: Ferritin 1227.5 ng/ml (8-388); Uric Acid 17.3 mg/dl (2.6-7.2)
[2020-09-28] MEDS ORDERED: MELATONIN 3 MG TAB PO PRN (22:01)
[2020-09-28] MEDS: ACETAMINOPHEN 500 MG TAB PO PRN (22:16)
[2020-09-28 22:29] LABS: Fibrinogen 493 mg/dl (184-400); INR 1.2 (0.9-1.1); Prothrombin Time 12.4 Seconds (9.0-12.0)
[2020-09-28] MEDS ORDERED: VANCOMYCIN HCL 1,000 MG/270 ML BAG IV STA (22:29)
[2020-09-28] MEDS ORDERED: VANCOMYCIN CONSULT ACTIVE PRN (22:29)
[2020-09-28] MEDS ORDERED: VANCOMYCIN HCL 2,750 MG in SODIUM CHLORIDE 0.9% 500 ML IV STA (22:43)
[2020-09-29 00:18] LABS: Pregnancy Test, Urine Negative (Negative)
[2020-09-29] MEDS: CEFEPIME 2,000 MG in SYRINGE 0 ML IV SCH ×2 (00:22→06:27)
[2020-09-29] MEDS ORDERED: ALBUT/IPRATROP 3MG/0.5MG NEB 3 ML VIAL NEB STA (01:24)
[2020-09-29] MEDS ORDERED: ALBUT/IPRATROP 3MG/0.5MG NEB 3 ML VIAL ONE (01:32)
[2020-09-29] MEDS ORDERED: OPTIRAY 320 125ml IV ONE (06:16)
[2020-09-29] MEDS: ACETAMINOPHEN 500 MG TAB PO PRN (06:35)
[2020-09-29 07:03] LABS: Hematocrit (blood only) 28.6 % (37-47); Hemoglobin 9.7 g/dL (12.0-16.0); Mean Corpuscular Hemoglobin 26.2 pg (25-34); Mean Corpuscular Hgb Conc 33.9 g/dL (32-36); Mean Corpuscular Volume 77.3 fL (80-100); Mean Platelet Volume 8.8 fL (7.4-10.4); Nucleated RBC # (auto) 0.51 K/uL (0-0); Nucleated RBC % (auto) 3.4 %; Platelet Count 16 K/uL (130-400); RDW Coefficient of Variation 14.7 % (11.5-14.5); RDW Standard Deviation 42.2 fL (36.4-46.3); White Blood Count 14.86 K/uL (4.8-10.8)
[2020-09-29 07:05] LABS: Albumin Level 2.9 gm/dl (3.4-5.0); BUN Creatinine Ratio 8.4 (10-20); Bilirubin Direct 0.3 mg/dl (0-0.2); Calcium 8.7 mg/dl (8.5-10.1); Creatinine Clr Calc Pharmacy 77.5 ml/min; Est GFR (African American) 46.7; Est GFR (Non-African American) 40.3; Potassium 3.8 mmol/L (3.5-5.1)
[2020-09-29 07:09] LABS: Bilirubin,Total 0.9 mg/dl (0.2-1)
--- NOTE | 2020-09-29 07:44 | Electrocardiogram Report ---
Test Reason : Blood Pressure : / mmHG Vent. Rate : 106 BPM Atrial Rate : 106 BPM P-R Int : 126 ms QRS Dur : 072 ms QT Int : 334 ms P-R-T Axes : 055 028 009 degrees QTc Int : 443 ms Poor data quality, interpretation may be adversely affected Sinus tachycardia Cannot rule out Inferior infarct , age undetermined Nonspecific ST abnormality Abnormal ECG When compared with ECG of 24-SEP-2020 04:53, No significant change was found Confirmed by Eligio Garner ([id number] on 09/29/2020 7:43:45 AM Referred By: REFERRED SELF Confirmed By:Chi Garner
--- NOTE | 2020-09-29 08:17 | Discharge Summary ---
Date of Service September 29, 2020 Admission HPI Per Admitting Provider Selene Muhammad is a 25yo C female with history of DVT presenting at the request of her outpatient physician for workup of jaw pain, thrombocytopenia and leukocytosis. Patient seen in the ER on 09/06/20 with complaint of cough/congestion/fevers/body aches. WBC=11.8 platelets WNL at that time. CTA of the chest was done which was negative for PE. A nonspecific axillary LN was detected at that time - 4.5 cm. Patient was diagnosed with viral bronchitis, given Dexamethasone x 1 dose and discharged home with MDI. Patient returned to the ER on 09/17/20 with complaint of fever, SERVIN, CP, body aches, nausea. Also with severe SERVIN and nosebleeds. Patient's platelet count found to be 95 at that time - also with elevated lymphocytes and D.dimer as well as abnormal liver studies. Lyme and anaplasmosis negative. Patient had an unremarkable CT of the head and sinuses as well as a normal MRI/MRV of the brain. She returns to the ER today with complaint of ongoing body pains, JULIO/SOB, occasional nosebleeds, chest tightness. She states she has drenching night sweats every night for the last 3.5 weeks. Some minimal unintentional weight loss. New bilateral LE edema with pain in her feet as well as severe pain in her jaw. Principal Diagnosis Anemia, thrombocytopenia, lymphadenopathy, pelvic masses, possible chronic appendicitis versus appendix mass, pleural effusion, hypoxia Discharge Exam Constitutional WD/WN, vitals as above + obese Eyes PERRL, conjunctivae normal, anicteric sclerae Neck trachea midline, no thyromegaly Respiratory + tachypneic (Mild); no retractions, does not use accessory muscles and no grun ting Auscultation: + diminished lung sounds (At the bases right greater than left); no crackles and no wheezes Cardiovascular Rate/Rhythm: regular rhythm and + tachycardic Heart Sounds: no murmur Vessels: dorsalis pedis pulses present Extremities: + edema (1+ pitting edema right greater than left legs) Chest (Breasts) Chest: normal inspection of chest Gastrointestinal (Abdomen) normal bowel sounds, soft, nontender, no hepatosplenomegaly (Obese abdomen) Percussion/Palpation: no abdominal mass Musculoskeletal Extremities: no cyanosis and no clubbing Skin no rashes, warm and dry Neurologic moves all extremities and awake; no focal motor deficits Psychiatric A+Ox3, euthymic affect Discharge Data Allergies Allergy/AdvReac Type Severity Reaction Status Date / Time No Known Allergies Allergy Verified 09/28/20 19:18 Ordered Studies 09/28/20 21:23 CT abd pelvis oral and IV con Urgent Chest x-ray Hospital Course (1) Shortness of breath: Selene Muhammad is a 25yo C female presenting with multiple complaints - SOB, night sweats, diarrhea, lower extremity edema, and headache ongoing for 3 or 4 weeks. Laboratory findings concerning for rapidly worsening thrombocytopenia (plt=19), microcytic anemia (Hgb=11.2, Hct=32.4, MCV=77.1), leukocytosis with lymphocytosis. Concerning for acute malignancy Uric acid significantly elevated suggestive of possible tumor lysis syndrome? Found to also have moderate right-sided and small left-sided pleural effusions. She was with acute respiratory failure with hypoxia requiring oxygen She had sinus tachycardia CT of the abdomen/pelvis showed large pelvic masses possibly related to the ov carolyn, small amount of ascites, pleural effusions, mesenteric lymphadenopathy, and possible mild acute appendicitis. She only had complaint of loose stools but no abdominal pain and no tenderness on examination. I did not feel she had an acute appendicitis More concerning for lymphoma versus ovarian cancer versus other malignancy and less likely infection. Case was discussed with hematology/oncology who recommended urgent transfer to tertiary care center-she was accepted there and transferred shortly after admission. Will need bone marrow biopsy, biopsy of either axillary lymphadenopathy or pelvic masses Treatment for possible tumor lysis syndrome Continue IV fluids and urgent transfer (2) Pelvic mass: As above (3) Axillary lymphadenopathy: Noted on previous recent CT scan of the chest to have left-sided 4.5 cm lymph node Concern for acute malignancy -See plan as above -Patient will most likely need FNA (4) Edema of lower extremity: Patient reports progressive bilateral LE edema over the last few days. 2+ non-pitting on exam Most likely secondary to large pelvic masses Work-up needed as above Had negative venous Dopplers of the bilateral lower extremities several days ago (5) Transaminitis: Elevated AST, AP. Diffuse abdominal tenderness. Organomegaly difficult to appreciate secondary to body habitus With hepatosplenomegaly on CT scan (6) Thrombocytopenia: Platelets = 19. Patient reports nosebleeds at home. She had a very minor episode of epistaxis after admission which is now stopped Will need bone marrow biopsy (7) RENETTA (acute kidney injury): Creatinine up to 1.7, could be secondary to tumor lysis syndrome versus dehydration from diarrhea Continue IV fluids and further work-up and follow-up renal function at tertiary care facility (8) Lymphocytosis: As above. Concern for acute malignancy. Also has been on corticosteroids as an outpatient Will need hematology consultation (9) Gastritis: Chronic. Fairly well controlled. -Hold Pepcid for now due to thrombocytopenia Disposition-urgent transfer to tertiary care facility at [facility] Total Time Total Time Spent Total Time Spent (In Minutes): 35 minutes Total Time Includes: Examination of the Patient, Discharge Planning, Medication Reconciliation and Communication With Other Providers (Hematology/oncology) Discharge Plan Discharge Items Patient Disposition: Transfer Acute Care Hospital Reason For Visit: THROMBOCYTOPENIA, ANEMIA Discharge Diagnosis: acute blast crisis Activity: Per Instructions section Non-emergency contact: Primary Care Provider and Oncologist Call non-emergency contact if: you have any medication questions and your symptoms worsen Follow-up/Referrals: Jose Luis Lancaster MD [Primary Care Provider] - Diet: Regular Addtl Attending Provider Instructions: Selene Muhammad is a 25yo C female presenting with multiple complaints - SOB, sweats, night sweats. Laboratory findings concerning for thrombocytopenia (plt=19), microcytic anemia (Hgb=11.2, Hct=32.4, MCV=77.1), leukocytosis with lymphocytosis. Concerning for acute malignancy -Uric Acid (17), LDH (2043), Peripheral smear pending -Ferritin (1227), iron studies -FSH ordered -Heme/Onc consultation appreciated (2) Axillary lymphadenopathy: Concern for acute malignancy -See plan as above -Patient will most likely need FNA (3) Edema of lower extremity: Patient reports progressive bilateral LE edema over the last few days. 2+ non-pitting on exam -Check BNP -Elevate legs -Check UA, TSH (4) Transaminitis: Elevated AST, AP. Diffuse abdominal tenderness. Organomegaly difficult to appreciate secondary to body habitus -Check CT Abdomen -Repeat LFTs in AM (5) Thrombocytopenia: Platelets = 19. Patient reports nosebleeds at home. No spontaneous bleeding at present -Peripheral smear -Check Fibrinogen, Coags for possible DIC (6) Lymphocytosis: As above. Concern for acute malignancy -Peripheral smear -Hematology consultation appreciated (7) Gastritis: Chronic. Fairly well controlled. -Hold Pepcid for now due to thrombocytopenia Pending Studies at Discharge: No Stand-Alone Forms: My [facility] Skilled Items Patient informed of condition?: Yes DNR: No Discharge Level of Care: Other Communicable Disease: No Discharge Prognosis: Stable Lines: None Urinary Catheter: No Medications and DC Order Prescriptions: Continued acetaminophen [Acetaminophen Extra Strength] 500 mg Tablet 1,000 mg PO Q6H PRN (Reason: Pain) RF: 0 loratadine 10 mg Tablet 10 mg PO DAILY PRN (Reason: Allergy Symptoms) RF: 0 famotidine 20 mg tablet 20 mg PO BID Qty: 20 RF: 0 promethazine 25 mg tablet 25 mg PO Q6H PRN (Reason: Nausea And Vomiting) RF: 0 hydroxyzine HCl 25 mg tablet 25 mg PO Q6H PRN (Reason: Anxiety) RF: 0 ondansetron 4 mg tablet,disintegrating 4 mg PO Q6H PRN (Reason: Nausea And Vomiting) RF: 0 Discharge Orders: Discharge Order (Routine); Ordered 09/29/20 Ordered By: Carlos Mancini Admission Data Admit Date/Time: 09/28/20 19:59 Attending Provider: Celina Morrow Admit Provider: Yasmeen Lira Primary Care Provider: Jose Luis Lancaster Other Interventions: Discharge Summary Assessment (RN) Last Done: 09/29/20 08:24 Coding Level of Care Code D/C Day Management >30 mins Diagnoses Shortness of breath R06.02 Pelvic mass R19.00 Axillary lymphadenopathy R59.0 Edema of lower extremity R60.0 Transaminitis R74.01 Thrombocytopenia D69.6 RENETTA (acute kidney injury) N17.9 Lymphocytosis D72.820 Gastritis K29.00 Chronicity: acute Gastritis bleeding: without bleeding Gastritis type: unspecified gastritis
--- NOTE | 2020-09-29 08:34 | CT Scan Report ---
CT SCAN OF THE ABDOMEN AND PELVIS WITH IV CONTRAST CLINICAL HISTORY: Generalized abdominal pain. Thrombocytopenia. COMPARISON STUDY: Abdominal ultrasound dated 02/17/2015. TECHNIQUE: Following the IV administration of 115 cc of Optiray 320, CT scan of the abdomen and pelv is is performed from the lung bases to the proximal femora. Images are reviewed in the axial, sagitta l, and coronal planes. IV contrast was administered without complication. Oral contrast was utilized. A dose lowering technique was utilized adhering to the principles of ALARA. CT DOSE: 1823.33 mGy.cm FINDINGS: Lung bases: The heart is normal in size and without pericardial effusion. There are small left and mo derate right pleural effusions with associated bibasilar atelectasis. Liver: The contrast-enhanced liver is enlarged, measuring 22 cm in length. The liver demonstrates dif fusely diminished attenuation consistent with hepatic steatosis. There is no intrahepatic biliary wes stacie dilatation. The hepatic veins and portal veins are patent. Gallbladder: Surgically absent noting clips in the gallbladder fossa. Spleen: The spleen is mildly enlarged measuring 13.8 cm in length. Pancreas: Unremarkable. Adrenal glands: Unremarkable. Kidneys: The contrast enhanced kidneys are normal in size and without hydronephrosis. The kidneys enh ance symmetrically. Abdominal vasculature: The abdominal aorta is normal in course and caliber. Bowel: There is no bowel obstruction. Enteric contrast reaches the rectum. There is nonspecific dilat ation of the appendix which measures up to 12 mm as seen on image #303. There is mild surrounding asc itic fluid. The appendiceal wall appears mildly hyperemic. Peritoneum: There is a small volume of abdominopelvic ascites. No intraperitoneal free air is identif ied. There is is a omental stranding with no definite peritoneal nodularity. Lymphadenopathy: There are numerous subcentimeter mesenteric lymph nodes. Pelvic viscera: The bladder is decompressed and grossly unremarkable. The uterus is normal as imaged. There are large hyperdense mass lesions identified in the pelvis bilaterally, likely related to the ovaries. The lesion on the left measures approximately 12.5 x 11 x 8.5 cm and the lesion on the right measures approximately 13 x 12 x 10 cm. Skeletal structures: No lytic or blastic lesions are seen. IMPRESSION: 1. There are large hyperdense pelvic masses as above which are likely related to the ovaries. These c ould be benign or neoplastic, and gynecology follow-up is recommended. The hyperdensity of the masses may represent a hemorrhagic component. 2. There is a small volume of abdominopelvic ascites as well as right larger than left pleural effusi ons. This could be seen in the setting of Meig syndrome. Although considered less likely, if there ar e malignant ovarian neoplasms then carcinomatosis would be impossible to exclude. 3. Hepatomegaly and hepatic steatosis. 4. Mild splenomegaly. 5. The appendix is mildly dilated and there is surrounding ascitic fluid. This is nonspecific. If raphael n localizes to the right lower quadrant a mild acute appendicitis would be impossible to exclude. Cli nical correlation will be essential. 6. There are numerous subcentimeter mesenteric lymph nodes which may be on a reactive basis. 7. Additional findings as above. ACT 112: Negative or not required by law. Electronically signed by: Hari An M.D. 09/29/2020 8:32 AM
[2020-09-29 08:35] LABS: ALC (manual) 9.82 K/uL (1.2-3.4); ANC (manual) 3.17 K/uL (1.4-6.5); Basophils # (manual) 0.24 K/uL (0-0.2); Basophils % (manual) 1.6 %; Eosinophils % (manual) 4.7 %; Lymphocytes # (manual) 9.12 K/uL (1.2-3.4); Lymphocytes % (manual) 61.4 %; Metamyelocytes # (manual) 0.24 K/uL (0-0); Metamyelocytes % (manual) 1.6 %; Monocytes # (manual) 0.46 K/uL (0.11-0.59); Monocytes % (manual) 3.1 %; Myelocytes # (manual) 0.24 K/uL (0-0); Myelocytes % (manual) 1.6 %; Neutrophils # (manual) 3.17 K/uL (1.4-6.5); Neutrophils % (manual) 21.3 %; RBC Morphology Unremarkable; Reactive Lymphocytes % (manual) 4.7 %
[2020-09-29] MEDS ORDERED: INFLUENZA VIRUS QUAD VACCINE 0.5 ML SYR IM ONE (09:00)
[2020-09-29] MEDS ORDERED: INFLUENZA ADMINISTRATION CHARGE ONE (09:00)
[2020-09-29] MEDS ORDERED: VANCOMYCIN HCL 1,750 MG in SODIUM CHLORIDE 0.9% 500 ML IV SCH (10:00)
== END 2020-09-29 08:33 | disposition short-term general hospital (02) ==
LOC: ED 17:42 → INTOOBSV 19:59 → SUATTDRO 19:59 → 2N 19:59